=== PATIENT | female | born 1955 | race Hispanic/Latino ===

== ENCOUNTER → 2019-07-21 | Outpatient (CLI) | payer MEDICARE ==
--- NOTE | 2019-07-21 09:38 | Diagnostic Imaging Report ---
EXAM: US ABDOMEN COMPLETE DATE: 07/21/2019 8:38 AM INDICATION: Left lower quadrant abdominal pain COMPARISON: None TECHNIQUE: Transverse and longitudinal bergeron scale and color doppler sonographic images of the upper abdomen were obtained. FINDINGS: There is no evidence of fluid or masses seen in the area of clinical concern in the right lower quadrant. LIVER 10.8 cm in the right midclavicular line. Normal echogenicity of the liver with normal contour, no masses. SPLEEN 7.2 cm in maximum diameter. Normal echogenicity, no masses. GALLBLADDER No gallbladder wall thickening, distension, stone, or pericholecystic fluid. NEgative reported sonographic Cobos's sign. Gallbladder wall measures 2 mm. BILE DUCTS No intra nor extra-hepatic biliary dilation. Common bile duct measures 5 mm PANCREAS: Visualized portions are normal. RIGHT KIDNEY: 8.3 cm Echogenicity: Normal Collecting System: No hydronephrosis Stones: None Cyst/Mass: None LEFT KIDNEY: 9.2 cm Echogenicity: Normal Collecting System: No hydronephrosis Stones: None Cyst/Mass: None VESSELS: Aorta: Visualized portions are within normal size limits Inferior Vena Cava: Visualized portions are normal Main Portal Vein: 0.7 cm, normal size with hepatopetal flow. FREE FLUID: None IMPRESSION: Unremarkable abdominal ultrasound. Signed by: Taurus Flores MD on 07/21/2019 9:35 AM
--- NOTE | 2019-07-21 09:56 | Diagnostic Imaging Report ---
Exam: Pelvic ultrasound. History: Pelvic pain Comparison: Abdominal ultrasound of the same day. Findings: Transabdominal sonographic evaluation of the pelvis. The uterus is anteverted in position, measuring 7.2 x 3.2 x 4.8cm. A left uterine body fibroid measures 1.4 x 1.4 x 1.8 cm. Endometrial stripe thickness is 5 mm. The right and left ovary are not well seen due to overlying bowel gas and lack of transvaginal examination. No free fluid in the pelvis. Impression: Left uterine body fibroid measures 1.4 x 1.4 x 1.8 cm. Signed by: Taurus Flores MD on 07/21/2019 9:53 AM
== END ==
LOC: US 08:29
PROVIDERS: ATTEND Family Medicine
DX: R10.32 Left lower quadrant pain (principal)
CPT/HCPCS: 76700; 76856

== ENCOUNTER → 2019-08-06 | Outpatient (CLI) | payer MEDICARE ==
--- NOTE | 2019-08-06 14:22 | Diagnostic Imaging Report ---
Pelvic ultrasound. History: Left lower quadrant abdominal pain. Comparison: Prior transabdominal pelvic ultrasound 07/21/2019. Discussion: Transabdominal and transvaginal evaluation of the pelvis was performed in the transverse and longitudinal planes. The uterus is normal in size measuring 7.4 x 3.4 x 3.7 cm. A 1.5 x 1.4 x 1.6 cm oval hypoechoic intramural mass is present in the left posterior body. Endometrial stripe is heterogeneous and thickened inferiorly measuring up to 7 mm, with a small amount of fluid. The right ovary measures 1.9 x 1.1 x 1.6 cm. The left ovary measures 1.7 x 0.8 x 1.2 cm. There is no evidence of an adnexal mass. There is no evidence of free fluid. IMPRESSION: 1. Small uterine fibroid. 2. Postmenopausal endometrial thickening may represent endometrial hyperplasia or neoplasm. Recommend gynecologic consult. Signed by: Nigel Contreras on 08/06/2019 2:18 PM
== END ==
LOC: US 12:37
PROVIDERS: ATTEND Family Medicine
DX: R10.32 Left lower quadrant pain (principal)
CPT/HCPCS: 76830